=== PATIENT | male | born 1935 | race Caucasian/White ===

== ENCOUNTER 2020-05-20 08:35 | Day surgery (SDC) | payer MEDICARE ==
[2020-05-20] VITALS (10 sets, daily range): BP systolic 91–115; BP diastolic 43–67
[~2020-05-20] VITALS: Ht 175.3 cm; Wt 84.5 kg
[~2020-05-20 08:35] MED LIST: CLON-529 PO; NOVALOG INSULIN SQ
[2020-05-20] MEDS ORDERED: LEUP22.54 SQ (09:30)
[2020-05-20] MEDS ORDERED: CLON-528 PO (09:30)
[2020-05-20] MEDS ORDERED: INSU100V46 SUBCUT (09:30)
[2020-05-20] MEDS ORDERED: CIPROFLAXIN PO (09:30)
[2020-05-20] MEDS ORDERED: PANT-47 PO (09:30)
[2020-05-20] MEDS ORDERED: SPIR50TA5 PO (09:30)
[2020-05-20] MEDS ORDERED: CARV-49 PO (09:30)
[2020-05-20] MEDS ORDERED: FAMO10TA41 PO (09:30)
[2020-05-20] MEDS ORDERED: HYDR-3965 PO (09:30)
[2020-05-20] MEDS: albumin 25% 100mL bottle x 1 IV PRN ×2 (11:08→11:30)
== END 2020-05-20 13:15 | disposition home or self-care (01) ==
LOC: SSTAY O 08:35
PROVIDERS: ATTEND Radiology Diagnostic Radiology
DX: R18.8 Other ascites (principal); J90 Pleural effusion, not elsewhere classified; K74.60 Unspecified cirrhosis of liver; E11.9 Type 2 diabetes mellitus without complications; F41.9 Anxiety disorder, unspecified; I25.10 Atherosclerotic heart disease of native coronary artery without angina pectoris; Z85.46 Personal history of malignant neoplasm of prostate; Z90.49 Acquired absence of other specified parts of digestive tract; Z98.890 Other specified postprocedural states; Z90.79 Acquired absence of other genital organ(s); Z95.1 Presence of aortocoronary bypass graft; Z88.2 Allergy status to sulfonamides; Z88.1 Allergy status to other antibiotic agents; Z79.4 Long term (current) use of insulin; Z79.899 Other long term (current) drug therapy
CPT/HCPCS: 32555; 49083; 71045; P9047